=== PATIENT | female | born 1985 | race Two or more races ===

== ENCOUNTER 2020-01-25 10:15 | Outpatient (CLI) | payer OTHER | END 2020-01-25 10:35 | disposition home or self-care (01) | LOC: MAMO-SONO 10:15 → SONOGRAMA 10:15 | PROVIDERS: ATTEND Obstetrics & Gynecology | DX: M62.830 Muscle spasm of back (principal); R59.0 Localized enlarged lymph nodes ==

== ENCOUNTER 2020-03-20 13:02 | Outpatient (CLI) | payer OTHER | END 2020-03-20 13:09 | disposition home or self-care (01) | LOC: SONOGRAMA 13:02 | PROVIDERS: ATTEND Pathology Anatomic Pathology & Clinical Pathology | DX: R59.0 Localized enlarged lymph nodes (principal) ==